=== PATIENT | female | born 1980 | race Caucasian/White ===

== ENCOUNTER 2016-12-10 18:00 | Emergency (ER) | payer MEDICARE | END 2016-12-10 21:51 | disposition home or self-care (01) | LOC: D.ER 18:00 | DX: S80.02XA Contusion of left knee, initial encounter (principal); S50.11XA Contusion of right forearm, initial encounter; S40.011A Contusion of right shoulder, initial encounter; S00.83XA Contusion of other part of head, initial encounter; V86.59XA Driver of other special all-terrain or other off-road motor vehicle injured in nontraffic accident, initial encounter; Y93.89 Activity, other specified; Y92.830 Public park as the place of occurrence of the external cause; F41.9 Anxiety disorder, unspecified; F32.9 Major depressive disorder, single episode, unspecified; K21.9 Gastro-esophageal reflux disease without esophagitis; F17.200 Nicotine dependence, unspecified, uncomplicated ==

== ENCOUNTER 2017-06-27 03:20 | Emergency (ER) | payer MEDICARE | END 2017-06-27 04:12 | disposition home or self-care (01) | LOC: D.ER 03:20 | DX: M25.572 Pain in left ankle and joints of left foot (principal); G89.29 Other chronic pain; F17.200 Nicotine dependence, unspecified, uncomplicated ==

== ENCOUNTER 2017-09-30 21:29 | Emergency (ER) | payer MEDICARE ==
[2017-09-30 22:34] LABS: APPEARANCE CLEAR (CLEAR); BILIRUBIN NEGATIVE (NEGATIVE); COLOR YELLOW (YELLOW); GLUCOSE NEGATIVE (NEGATIVE); KETONE NEGATIVE (NEGATIVE); NITRITE NEGATIVE (NEGATIVE); PROTEIN NEGATIVE (NEGATIVE); UROBILINOGEN NORMAL (NORMAL)
[2017-09-30 22:41] LABS: UDS - AMPHET NEGATIVE QUAL (NEGATIVE); UDS - BARB NEGATIVE QUAL (NEGATIVE); UDS - BENZO NEGATIVE QUAL (NEGATIVE); UDS - COCAINE NEGATIVE QUAL (NEGATIVE); UDS - OPIATE NEGATIVE QUAL (NEGATIVE); UDS - PCP NEGATIVE QUAL (NEGATIVE); UDS - THC NEGATIVE QUAL (NEGATIVE)
[2017-09-30 22:45] LABS: BASOPHILS 0.2 % (0-2); EOSINOPHILS 2.4 % (0-7); IMMATURE GRANULOCYTES 0.1 % (0-5); LYMPHOCYTES 28.2 % (15-50); MCH 31.5 pg (26.0-34.0); MCHC 34.1 g/dL (31.0-37.0); MCV 92.4 fL (80.0-100.0); MEAN PLATELET VOLUME 12.2 fL (7.4-10.4); MONOCYTES 7.5 % (2-11); NEUTROPHILS 61.6 % (40-80); PLATELET COUNT 192 10x3/uL (130-400); RBC 4.76 10x6/uL (4.00-5.40); WBC 9.6 10x3/uL (4.8-10.8)
[2017-09-30 23:02] LABS: ALKALINE PHOSPHATASE 40 U/L (46-116); ALT (SGPT) 29 U/L (10-68); CALC OSMOLALITY 277 mosm/kg (275-300); CALCIUM 8.5 mg/dL (8.5-10.1); CARBON DIOXIDE 25.4 mmol/L (21.0-32.0); CHLORIDE - SERUM 105 mmol/L (98-107); CREATININE - SERUM 0.9 mg/dL (0.6-1.3); GLUCOSE 84 mg/dL (74-106); POTASSIUM - SERUM 3.6 mmol/L (3.5-5.1); PROTEIN - SERUM 6.9 g/dL (6.4-8.2); SODIUM 141 mmol/L (136-145); UREA NITROGEN 7 mg/dL (7-18); eGFR NON AFRICAN AMERICAN 75 mL/min (90-120)
== END 2017-09-30 23:18 | disposition home or self-care (01) ==
LOC: D.ER 21:29
PROVIDERS: Physician Assistant Medical
DX: M25.562 Pain in left knee (principal); M53.3 Sacrococcygeal disorders, not elsewhere classified; F17.200 Nicotine dependence, unspecified, uncomplicated

== ENCOUNTER 2017-12-08 15:21 | Emergency (ER) | payer MEDICARE | END 2017-12-08 18:31 | disposition home or self-care (01) | LOC: D.ER 15:21 | DX: M54.5 Low back pain (principal); M62.830 Muscle spasm of back; F17.200 Nicotine dependence, unspecified, uncomplicated ==

== ENCOUNTER 2018-09-08 17:11 | Emergency (ER) | payer MEDICARE ==
[~2018-09-08] VITALS: Ht 154.9 cm; Wt 72.7 kg
[2018-09-08 17:16] VITALS: BP 126/82; Ht 154.9 cm; Wt 72.7 kg
[2018-09-08] MEDS ORDERED: ESKALITH CR450 M1 PO (17:16)
== END 2018-09-08 18:10 | disposition left against medical advice (07) ==
LOC: D.ER 17:11
DX: K08.89 Other specified disorders of teeth and supporting structures (principal)

== ENCOUNTER 2018-11-29 19:33 | Emergency (ER) | payer MEDICARE ==
[~2018-11-29] VITALS: Ht 154.9 cm; Wt 64.0 kg
[~2018-11-29 19:33] MED LIST: ESKALITH CR450 M1 PO
[2018-11-29 19:37] VITALS: Ht 154.9 cm; Wt 64.0 kg
[2018-11-29 21:11] LABS: BASOPHILS 0.3 % (0-2); HEMATOCRIT 41.6 % (36.0-48.0); HEMOGLOBIN 14.1 g/dL (12-16); IMMATURE GRANULOCYTES 0.3 % (0-5); LYMPHOCYTES 38.5 % (15-50); MCH 31.6 pg (26.0-34.0); MCHC 33.9 g/dL (31.0-37.0); MCV 93.3 fL (80.0-100.0); MEAN PLATELET VOLUME 11.7 fL (7.4-10.4); MONOCYTES 6.6 % (2-11); NEUTROPHILS 51.3 % (40-80); PLATELET COUNT 220 10x3/uL (130-400); RBC 4.46 10x6/uL (4.00-5.40); RDW 13.9 % (11.5-14.5); WBC 10.5 10x3/uL (4.8-10.8)
[2018-11-29 21:23] LABS: APTT 25.9 SECONDS (22.8-39.4); INR 0.92 (0.85-1.17); PROTIME 11.9 SECONDS (11.6-15.0)
[2018-11-29 21:31] LABS: ALBUMIN 3.3 g/dL (3.4-5.0); ALKALINE PHOSPHATASE 37 U/L (46-116); ALT (SGPT) 30 U/L (10-68); BILIRUBIN - TOTAL 0.04 mg/dL (0.2-1.3); CALC OSMOLALITY 282 mosm/kg (275-300); CALCIUM 8.3 mg/dL (8.5-10.1); CHLORIDE - SERUM 107 mmol/L (98-107); CREATININE - SERUM 0.8 mg/dL (0.6-1.3); GLUCOSE 100 mg/dL (74-106); POTASSIUM - SERUM 3.4 mmol/L (3.5-5.1); PROTEIN - SERUM 6.7 g/dL (6.4-8.2); SODIUM 141 mmol/L (136-145); UREA NITROGEN 18 mg/dL (7-18); eGFR NON AFRICAN AMERICAN 85 mL/min (90-120)
[2018-11-29 21:41] LABS: CKMB 0.3 U/L (0.0-3.6); CREATINE KINASE 51 UL (21-215); TROPONIN-I < 0.017 ng/mL (0.000-0.060)
[2018-11-30 00:11] LABS: APPEARANCE HAZY (CLEAR); BILIRUBIN NEGATIVE (NEGATIVE); COLOR PINK (YELLOW); GLUCOSE NEGATIVE (NEGATIVE); KETONE NEGATIVE (NEGATIVE); NITRITE NEGATIVE (NEGATIVE); PH 6.5 (5.0-6.0); PROTEIN 1+ mg/dL (NEGATIVE); SPECIFIC GRAVITY 1.015 (1.005-1.020); UROBILINOGEN NORMAL (NORMAL)
[2018-11-30 00:15] LABS: BACTERIA MODERATE /hpf (NONE SEEN); EPITHELIAL CELLS 0-5 /hpf (0-5); RED CELLS - URINE 0-5 /hpf (0-5); WHITE CELLS - URINE 0-5 /hpf (0-5)
[2018-11-30 00:16] LABS: AMORPHOUS SEDIMENT <1+ /lpf (NONE SEEN)
[2018-11-30 00:17] LABS: UDS - AMPHET NEGATIVE QUAL (NEGATIVE); UDS - BARB NEGATIVE QUAL (NEGATIVE); UDS - BENZO NEGATIVE QUAL (NEGATIVE); UDS - COCAINE NEGATIVE QUAL (NEGATIVE); UDS - OPIATE NEGATIVE QUAL (NEGATIVE); UDS - PCP NEGATIVE QUAL (NEGATIVE); UDS - THC NEGATIVE QUAL (NEGATIVE)
[2018-11-30] MEDS ORDERED: FLAGYL500 MG PO (01:14)
[2018-11-30] MEDS ORDERED: NAPROSYN500 MG PO (01:14)
[2018-11-30 01:22] VITALS: BP 118/75
== END 2018-11-30 01:21 | disposition home or self-care (01) ==
LOC: D.ER 19:33
PROVIDERS: Family Medicine
DX: N76.0 Acute vaginitis (principal); B96.89 Other specified bacterial agents as the cause of diseases classified elsewhere; M54.12 Radiculopathy, cervical region; R07.9 Chest pain, unspecified; R06.02 Shortness of breath

== ENCOUNTER 2020-07-24 22:59 | Emergency (ER) | payer MEDICARE ==
[~2020-07-24] VITALS: Ht 154.9 cm; Wt 64.5 kg
[~2020-07-24 22:59] MED LIST changes: +FLAGYL500 MG PO; +NAPROSYN500 MG PO
[2020-07-24 23:04] VITALS: Ht 154.9 cm; Wt 64.5 kg
[2020-07-24] MEDS ORDERED: LAMICTAL25 MG PO (23:07)
[2020-07-24] MEDS ORDERED: KLONOPIN1 MG PO (23:08)
[2020-07-24] MEDS ORDERED: SEROQUEL100 MG PO (23:08)
--- NOTE | 2020-07-24 23:23 | NUR ---
DR. CASTAÑEDA NOTIFIED AND REVIEWED PT'S BEHAVIOR AND ASSESSMENT RESULTS. PT IS A LOW RISK PER DR. CASTAÑEDA. DR. CASTAÑEDA STATED TO GIVE RESOURCES REVIEWED WITH PT AND SHE VERBALIZED UNDERSTANDING.
[2020-07-24] MEDS ORDERED: TORADOL10 MG PO (23:44)
[2020-07-25 00:12] VITALS: BP 132/81
== END 2020-07-25 00:13 | disposition home or self-care (01) ==
LOC: D.ER 22:59
DX: S46.911A Strain of unspecified muscle, fascia and tendon at shoulder and upper arm level, right arm, initial encounter (principal); M25.521 Pain in right elbow; W50.2XXA Accidental twist by another person, initial encounter; Y93.9 Activity, unspecified; Y92.9 Unspecified place or not applicable